=== PATIENT | male | born 1960 | race Caucasian/White ===

== ENCOUNTER 2017-02-14 22:16 | Emergency (ER) | payer OTHER ==
[2017-02-14] MEDS ORDERED: Acetaminophen/HYDROcodone 325-5 MG Tab PO ONE (22:17)
[2017-02-14 22:21] VITALS: BP 117/74
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
[2017-02-14] MEDS ORDERED: Take Home: Acetaminophen/HYDROcodone 325-5 MG, 2 Tab Pack PO ONE (23:20)
== END 2017-02-14 23:30 | disposition home or self-care (01) ==
LOC: CC.ED 22:16
DX: S42.111A Displaced fracture of body of scapula, right shoulder, initial encounter for closed fracture (principal); V89.9XXA Person injured in unspecified vehicle accident, initial encounter; Y92.096 Garden or yard of other non-institutional residence as the place of occurrence of the external cause
CPT/HCPCS: 73010; 73030; 99283; A9270

== ENCOUNTER 2017-06-30 13:09 | Emergency (ER) | payer OTHER ==
[2017-06-30] MEDS: Sodium Chloride 0.9% 1,000 ML IV SCH ×2 (13:19→16:00)
[2017-06-30 13:42] LABS: CHLORIDE,CL 106 mEq/L (98-106); SODIUM,NA 141 mEq/L (136-145)
[2017-06-30 13:43] VITALS: BP 133/76
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
[2017-06-30] MEDS ORDERED: Sodium Chloride 0.9% 1,000 ML ONE (16:16)
== END 2017-06-30 18:00 | disposition home or self-care (01) ==
LOC: CC.ED 13:09
DX: T71 Asphyxiation (principal); X58.XXXA Exposure to other specified factors, initial encounter
CPT/HCPCS: 36415; 71045; 80053; 81001; 82150; 82550; 85025; 85610; 96360; 96361; 99285; J7030

== ENCOUNTER 2018-09-15 14:50 | Emergency (ER) | payer SELFPAY ==
[2018-09-15 15:01] VITALS: BP 133/79
[2018-09-15 15:42] LABS: CHLORIDE,CL 107 mEq/L (98-106); SODIUM,NA 142 mEq/L (136-145)
--- NOTE | 2018-09-15 16:00 | EDM.PDOC ---
ED HPI GENERAL MEDICAL PROBLEM - General Chief Complaint: General Stated Complaint: right groin pain Time Seen by Provider: 09/15/18 15:30 Source of Information: Reports: Patient History Limitations: Reports: No Limitations - History of Present Illness INITIAL COMMENTS - FREE TEXT/NARRATIVE: Patient presents with right groin pain. 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 Didn't feel a particular pop but did note over the course of the night, had more and more swelling to right groin and discomfort. Last night was very swollen and tender. Does appear to be better this am but still feels pressure in the right groin. No previous hernia that he is aware of. Has been voiding without difficulty. Has not noted any blood. No fevers, diarrhea or constipation. Onset: Gradual Duration: Hour(s):, Improving Location: Reports: Pelvis Quality: Reports: Ache Severity: Mild Improves with: Reports: Rest Context: Reports: Lifting Associated Symptoms: Denies: Chest Pain, Cough, Nausea/Vomiting, Shortness of Breath Right Groin Pain Score (Numeric/FACES): 3 - Related Data Allergies Allergy/AdvReac Type Severity Reaction Status Date / Time No Known Allergies Allergy Verified 09/15/18 15:02 Home Meds: Home Meds . [No Known Home Meds] 12/13/15 [History] Past Medical History - Past Health History Medical/Surgical History: Denies Medical/Surgical History Social & Family History - Family History Family Medical History: Noncontributory - Tobacco Use Smoking Status *Q: Never Smoker - Caffeine Use Caffeine Use: Reports: Coffee, Soda - Alcohol Use Days Per Week of Alcohol Use: 1 Number of Drinks Per Day: 2 Total Drinks Per Week: 2 - Recreational Drug Use Recreational Drug Use: No ED ROS GENERAL - Review of Systems Review Of Systems: See Below Constitutional: Denies: Fever, Chills, Malaise, Weakness, Decreased Appetite HEENT: Reports: No Symptoms Respiratory: Denies: Shortness of Breath, Cough Cardiovascular: Denies: Chest Pain, Edema, Lightheadedness Endocrine: Denies: Fatigue GI/Abdominal: Reports: Abdominal Pain. Denies: Constipation, Diarrhea, Hematochezia, Melena, Nausea, Vomiting : Reports: No Symptoms Musculoskeletal: Reports: No Symptoms Skin: Reports: No Symptoms Neurological: Reports: No Symptoms ED EXAM, GENERAL - Physical Exam Exam: See Below Exam Limited By: No Limitations General Appearance: Alert, WD/WN, No Apparent Distress Ears: Normal External Exam, Normal TMs Nose: Normal Inspection, Normal Mucosa, No Blood Throat/Mouth: Normal Inspection, Normal Oropharynx Head: Normocephalic Neck: Normal Inspection, Supple, Non-Tender Respiratory/Chest: No Respiratory Distress, Lungs Clear, Normal Breath Sounds Cardiovascular: Regular Rate, Rhythm GI/Abdominal: Normal Bowel Sounds, Soft (Male) Exam: Hernia (inguinal swelling, reducible with tenderness) Neurological: Alert, Oriented Skin Exam: Warm, Dry Course - Vital Signs Last Recorded V/S: Last Vital Signs Temp 98.6 F 09/15/18 14:55 Pulse 83 09/15/18 14:55 Resp 20 09/15/18 14:55 BP 133/79 09/15/18 14:55 Pulse Ox 98 09/15/18 14:55 - Orders/Labs/Meds Orders: Active Orders 24 hr Category Date Time Status Abdomen Pelvis w Cont [CT] Stat Exams 09/15/18 15:17 Taken Labs: Laboratory Tests 09/15/18 09/15/18 09/15/18 Range/Units 15:00 15:17 15:17 WBC 3.7 L (5.0-10.0) 10^3/uL RBC 4.82 (4.50-6.00) 10^6/uL Hgb 14.5 (14.0-18.0) g/dL Hct 41.3 (40.0-54.0) % MCV 85.7 (82.0-94.0) fL MCH 30.1 (27.0-32.0) pg MCHC 35.1 (33.0-38.0) g/dL RDW Coeff of Kirk 13.7 (11.0-15.0) % Plt Count 158 (150-400) 10^3/uL Neut % (Auto) 46.5 (35-85) % Lymph % (Auto) 35.5 (10-55) % [place] % (Auto) 15.0 (0-16) % Eos % (Auto) 2.5 (0-5) % Baso % (Auto) 0.5 (0-3) % Neut # (Auto) 1.70 L (1.80-7.00) 10^3/uL Lymph # (Auto) 1.30 (1.00-4.80) 10^3/uL [place] # (Auto) 0.55 (0.00-0.80) 10^3/uL Eos # (Auto) 0.09 (0.00-0.45) 10^3/uL Baso # (Auto) 0.02 10^3/uL Sodium 142 (136-145) mEq/L Potassium 3.8 (3.5-5.0) mEq/L Chloride 107 H (98-106) mEq/L Carbon Dioxide 24 D (21-32) mmol/L BUN 20 H (7-18) mg/dL Creatinine 1.0 (0.7-1.3) mg/dL Est Cr Clr Drug Dosing 85.17 mL/min Estimated GFR (MDRD) > 60 (>=60) mL/min Glucose 93 D (75-99) mg/dL Calcium 8.6 (8.4-10.1) mg/dL C-Reactive Protein 0.2 (0.2-0.8) mg/dL Urine Color Yellow (YELLOW) Urine Appearance Clear (CLEAR) Urine pH 7.0 (4.5-8.0) Ur Specific [place] 1.015 (1.003-1.020) Urine Protein Negative (NEGATIVE) mg/dL Urine Glucose (UA) Negative (NEGATIVE) mg/dL Urine Ketones Negative (NEGATIVE) mg/dL Urine Occult Blood Negative (NEGATIVE) Urine Nitrite Negative (NEGATIVE) Urine Bilirubin Negative (NEGATIVE) Urine Urobilinogen 0.2 (0.2-1.0) EU/dL Ur Leukocyte Esterase Negative (NEGATIVE) Urine RBC Not seen (0-5) /HPF Urine WBC Not seen (0-5) /HPF Meds: Medications Discontinued Medications Generic Name Dose Route Start Last Admin Trade Name Freq PRN Reason Stop Dose Admin Iopamidol 100 ml 09/15/18 18:03 09/15/18 18:28 Isovue-300 (61%) IVPUSH 09/15/18 18:04 100 ml ONETIME ONE Administration - Re-Assessments/Exams Free Text/Narrative Re-Assessment/Exam: 09/15/18 18:58 Patient has been up and around since CT scan, doing well. No further pain. 09/15/18 19:06 Radiology called, no concerning hernia present at this time. CT without acute concern. Departure - Departure Time of Disposition: 19:07 Disposition: Home, Self-Care 01 Condition: Good Clinical Impression: Inguinal swelling - Discharge Information *PRESCRIPTION DRUG MONITORING PROGRAM REVIEWED*: No *COPY OF PRESCRIPTION DRUG MONITORING REPORT IN PATIENT VIN: No Referrals: Raimundo Richardson PA-C [Primary Care Provider] - Forms: ED Department Discharge Additional Instructions: 1. Ice to affected area 2. Lifting restriction 10-20# 3. Tylenol for discomfort 4. Will call you with surgical evaluation as arranged. - My Orders Last 24 Hours: My Active Orders 09/15/18 15:17 Abdomen Pelvis w Cont [CT] Stat - Assessment/Plan Last 24 Hours: My Active Orders 09/15/18 15:17 Abdomen Pelvis w Cont [CT] Stat
[2018-09-15] MEDS ORDERED: Iopamidol 612 MG/ML 100 ML Bottle IVPUSH ONE (18:03)
== END 2018-09-15 19:15 | disposition home or self-care (01) ==
LOC: CC.ED 14:50
DX: R19.03 Right lower quadrant abdominal swelling, mass and lump (principal)
CPT/HCPCS: 36415; 74177; 80048; 81001; 85025; 86140; 99284; Q9967